=== PATIENT | male | born 1960 | race Caucasian/White ===

== ENCOUNTER → 2018-04-26 08:45 | Outpatient (CLI) | payer OTHER, MEDICAID, SELFPAY ==
[2018-04-26 09:51] LABS: Cholesterol 157 mg/dL (140-199); HDL Cholesterol 34 mg/dL (40-60); LDL Cholesterol Calculated 99 mg/dL (<100); Triglycerides 120 mg/dL (35-150)
== END ==
PROVIDERS: Family Provider Family Medicine; PCP Family Medicine; Visit Provider Family Medicine
DX: E78.00 Pure hypercholesterolemia, unspecified (principal)
CPT/HCPCS: 36415; 80061

== ENCOUNTER → 2018-07-04 13:54 | Outpatient (CLI) | payer OTHER, MEDICAID, SELFPAY ==
--- NOTE | 2018-07-04 13:56 | DI.RAD.S_ITS ---
PROCEDURE: XR WRIST LT MIN 3V INDICATIONS: PAIN IN LEFT WRIST TECHNIQUE: 4 views of the wrist were acquired. COMPARISON: None. FINDINGS: Bones: No fractures or dislocations. No suspicious bony lesions. Joint spaces are well-preserved. Scaphoid view: Scaphoid appears intact Soft tissues: No suspicious soft tissue calcifications. IMPRESSION: Unremarkable radiographic examination of left wrist. Dictated by: Alex Abebe M.D. on 07/04/2018 at 14:37 Approved by: Alex Abebe M.D. on 07/04/2018 at 14:40
== END ==
PROVIDERS: Family Provider Family Medicine; PCP Family Medicine; Visit Provider Family Medicine
DX: M25.532 Pain in left wrist (principal)
CPT/HCPCS: 73110

== ENCOUNTER → 2019-05-16 07:58 | Outpatient (CLI) | payer OTHER, MEDICAID, SELFPAY ==
[2019-05-16 09:13] LABS: Alanine Aminotransferase 52 IU/L (21-72); Albumin 4.6 g/dL (3.5-5.0); Albumin Globulin Ratio 1.5 (1.0-2.8); Alkaline Phosphatase 114 U/L (38-126); Aspartate Aminotransferase 34 IU/L (17-59); Bilirubin Total 0.7 mg/dL (0.2-1.3); Blood Urea Nitrogen 26 mg/dL (9-20); Calcium 9.3 mg/dL (8.4-10.2); Carbon Dioxide 24 mmol/L (22-32); Chloride 110 mmol/L (98-107); Cholesterol 98 mg/dL (140-199); Estimated Glomerular Filt Rate 56.7 mL/min (>60); Globulin 3.1 g/dL (1.7-4.1); Glucose 94 mg/dL (70-100); HDL Cholesterol 28 mg/dL (40-60); HEMOLYSIS < 15 (0-50); LDL Cholesterol Calculated 59 mg/dL (<100); Potassium 4.4 mmol/L (3.4-5.1); Sodium 146 mmol/L (137-145); Total Protein 7.7 g/dL (6.3-8.2); Triglycerides 55 mg/dL (35-150)
[2019-05-16 09:21] LABS: Add Manual Diff / Slide Review NO; Basophils Absolute Auto 0 /uL (0-100); Basophils Percent Auto 0.4 % (0-2); Eosinophils Absolute Auto 0 /uL (0-450); Eosinophils Percent Auto 0.2 % (2-4); Hematocrit 43.5 % (41-53); Hemoglobin 14.3 g/dL (13.5-17.5); Lymphocytes Absolute Auto 1800 /uL (1100-4500); Lymphocytes Percent Auto 15.5 % (25-40); Mean Corpuscular Hemoglobin 28.8 PG (26-34); Mean Corpuscular Volume 87.2 fL (80-100); Monocytes Absolute Auto 500 /uL (0-900); Neutrophils Absolute Auto 9500 /uL (1500-7000); Neutrophils Percent Auto 79.9 % (50-75); Platelet Count 261 X10^3/uL (150-400); Red Blood Cell Count 4.99 X10^6/uL (4.5-5.9); Red Cell Distribution Width 14.3 % (11.6-14.8); White Blood Cell Count 11.9 X10^3/uL (4.5-11.0)
== END ==
PROVIDERS: PCP Family Medicine; Visit Provider Family Medicine
DX: Z79.899 Other long term (current) drug therapy (principal); E78.00 Pure hypercholesterolemia, unspecified
CPT/HCPCS: 36415; 80053; 80061; 85025

== ENCOUNTER → 2020-07-21 08:12 | Outpatient (CLI) | payer MEDICARE, MEDICAID, SELFPAY ==
[2020-07-21 11:08] LABS: Alanine Aminotransferase 51 IU/L (<50); Albumin 4.1 g/dL (3.5-5.0); Albumin Globulin Ratio 1.4 (1.0-2.8); Alkaline Phosphatase 99 U/L (38-126); Aspartate Aminotransferase 36 IU/L (17-59); BUN Creatinine Ratio 19.9 (6-22); Bilirubin Total 0.4 mg/dL (0.2-1.3); Blood Urea Nitrogen 29 mg/dL (9-20); Calcium 9.1 mg/dL (8.4-10.2); Carbon Dioxide 24 mmol/L (22-32); Chloride 107 mmol/L (98-107); Cholesterol 82 mg/dL (140-199); Estimated Glomerular Filt Rate 49.4 mL/min (>60); Globulin 2.9 g/dL (1.7-4.1); Glucose 89 mg/dL (70-100); HDL Cholesterol 28 mg/dL (40-60); HEMOLYSIS < 15 (0-50); LDL Cholesterol Calculated 31 mg/dL (<100); Potassium 4.3 mmol/L (3.4-5.1); Sodium 140 mmol/L (137-145); Triglycerides 114 mg/dL (35-150)
== END ==
PROVIDERS: PCP Family Medicine; Referring Provider Family Medicine; Visit Provider Family Medicine
DX: Z79.899 Other long term (current) drug therapy (principal); E78.00 Pure hypercholesterolemia, unspecified
CPT/HCPCS: 36415; 80053; 80061

== ENCOUNTER → 2020-08-01 11:20 | Outpatient (CLI) | payer MEDICARE, MEDICAID, SELFPAY ==
[2020-08-02 18:11] LABS: COVID19 Sendout Not Detected (Not Detect)
== END ==
PROVIDERS: PCP Family Medicine; Visit Provider Nurse Practitioner
DX: Z11.59 Encounter for screening for other viral diseases (principal)
CPT/HCPCS: 87635

== ENCOUNTER 2020-08-04 11:56 | Day surgery (SDC) | payer MEDICARE, SELFPAY ==
[2020-08-04] MEDS: LACTATED RINGERS 1,000 ML 200 ML IV (12:24)
[2020-08-04 12:28] VITALS: BP 131/87; PULSE 88; RESP 16; TEMP 36.5; O2SAT 95; BMI 39.2
--- NOTE | 2020-08-04 12:58 | PM.HP.1 ---
History of Present Illness History of Present Illness Date Patient Seen: 08/04/20 Time Patient Seen: 12:59 Chief complaint: SDC Narrative: The patient presents for colorectal sreening. They have never had any previous examination for such. No personal or family history of colon cancer. On further history denies any recent gastrointestinal symptoms. No nausea, vomiting, abdominal pain, loss of appetite, unexplained weight loss, change in bowel habits, diarrhea, constipation, melena, hematochezia, or bright red blood per rectum. Patient History Medical History (Updated 08/04/20 @ 13:00 by Demetri Hanks MD) Anxiety (Chronic Unknown) Arthritis (Chronic Unknown) Chickenpox (Resolved Unknown) Chronic back pain (Chronic 02/2016) Chronic pain syndrome (Chronic Unknown) Class 3 obesity with serious comorbidity and body mass index (BMI) of 40.0 to 44.9 in adult (02/25/18) Depression (Chronic Unknown) GERD (gastroesophageal reflux disease) (Chronic Unknown) Gout (Chronic Unknown) Hemorrhoids (Chronic Unknown) Hyperlipemia (Chronic Unknown) Hypertension (Chronic Unknown) Insomnia (Chronic) Left wrist pain (Chronic) Measles (Resolved Unknown) Mumps (Resolved Unknown) 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) Osteoarthritis (Chronic Unknown) Pain of right hip (Chronic 01/10/18) Primary osteoarthritis of right hip (Chronic 02/25/18) Spinal stenosis (Chronic Unknown) Surgical History (Updated 08/04/20 @ 12:59 by Demetri Hanks MD) Hx of tonsillectomy (Resolved Unknown) S/P CABG x 4 (Acute) Family & Social History Family History Father Coronary artery disease of [place] artery of [place] heart with stable angina pectoris History of quadruple bypass Mother Type 2 diabetes mellitus with diabetic chronic kidney disease Sister Diabetes mellitus with multiple complications Sister Diabetes mellitus Sister Diabetes mellitus Social History: household members family lives independently Yes Tobacco & Substance use: Smoking Status Never smoker alcohol intake former Substance Use Type marijuana Meds Home Medications and Allergies Home Medications Medication Instructions Recorded Confirmed Type disabled parking permit See Rx Instructions .ROUTE 05/12/18 07/15/18 Rx .COMPLEX #1 albuterol sulfate 90 mcg/actuation 2 puff INHALATION Q4-6H PRN #8 gram 07/15/18 08/04/20 Rx aerosol inhaler gabapentin 600 mg tablet 600 mg PO TID #90 tab 08/28/18 08/04/20 Rx trazodone 100 mg tablet 100 mg PO BEDTIME #90 tab 10/31/18 08/04/20 Rx diclofenac sodium 75 mg 75 mg PO BID #180 tab 11/19/18 08/04/20 Rx tablet,delayed release omeprazole 40 mg capsule,delayed 40 mg PO Q DAY #90 cap 11/19/18 08/04/20 Rx release sertraline 100 mg tablet 100 mg PO QDAY #90 tab 11/19/18 08/04/20 Rx aspirin 81 mg PO BID 08/04/20 08/04/20 History atorvastatin 80 mg PO BEDTIME 08/04/20 08/04/20 History cyclobenzaprine 10 mg PO TID 08/04/20 08/04/20 History loratadine 10 mg PO DAILY 08/04/20 08/04/20 History losartan 12.5 mg PO DAILY 08/04/20 08/04/20 History metoprolol succinate [Toprol XL] 12.5 mg PO BID 08/04/20 08/04/20 History phentermine 37.5 mg PO DAILY 08/04/20 08/04/20 History sennosides [senna] 8.6 mg PO BEDTIME 08/04/20 08/04/20 History tamsulosin 0.8 mg PO BEDTIME 08/04/20 08/04/20 History topiramate 50 mg PO DAILY 08/04/20 08/04/20 History Allergies Allergy/AdvReac Type Severity Reaction Status Date / Time lisinopril AdvReac Cough Verified 08/04/20 12:41 Review of Systems Review of Systems Narrative: A 10 point review of systems is negative except as noted in the HPI Exam Vital Signs (past 8 hours): - 08/04/20 12:28 Temperature 97.7 F Pulse Rate 88 Respiratory Rate 16 Blood Pressure 131/87 Pulse Oximetry 95 Oxygen Delivery Method Room Air Narrative Exam Narrative: General-no acute distress, obese male HEENT-moist mucous membranes, no scleral icterus Neck-supple, no lymphadenopathy Chest- non labored respirations, clear to auscultation bilaterally Cardiac-regular rate no peripheral edema Abdomen-soft, nontender, non distended Extremities-warm, well perfused Neurological-alert and oriented, no focal deficits Assessment & Plan Assessment and plan (1) Screening for colon cancer: Status: Acute Assessment & Plan narrative: The patient requires colorectal screening and colonoscopy is recommended. Technical details were discussed. Risks, benefits, alternatives explained. Risks including but not limited to myocardial infarction, aspiration, bleeding, pain, missed lesion, incomplete examination, need for further radiographic studies, colonic perforation, and need for major abdominal surgery were discussed. All questions were answered to their satisfaction, and they are in agreement with this plan. COVID-19 COVID-19 status: Negative
[2020-08-04] MEDS: fentaNYL 250 MCG/5 ML INJ IV (13:03)
[2020-08-04] MEDS: MIDAZOLAM 5 MG/5 ML VIAL IV (13:03)
--- NOTE | 2020-08-04 13:21 | PM.OP.ENDO ---
Operative Date/Time/Diagnoses Date of procedure: 08/04/20 Time of procedure: 13:22 Pre-op diagnosis: Screening colonoscopy Post-op diagnosis: same Procedure & Clinicians Study performed: Colonoscopy Same procedure as scheduled: Yes Indications: 59-year-old male here for initial routine screening colonoscopy Surgeon: Demetri Hanks Procedure Notes SCOAP/Timeout: Performed Procedure in detail: Patient placed in left lateral recumbent position. Time out was performed. Procedural sedation was administered with Versed and Fentanyl. Examination began with a thorough inspection of the perianal area there was no evidence of fissures, fistulae, external hemorrhoids or cutaneous malignancy. The colonoscopy scope was then placed into the rectum the the lumen was insufflated with air. The scope was carefully advanced forward. Ultimately the cecum was intubated and confirmed by identification of the ileocecal valve and the confluence of the taenia. The scope was then slowly withdrawn examining colon thoroughly in all directions. In the rectum the rectal columns were identified and retroflexion of the scope was performed for inspection of the distal rectum and anal canal. The colonoscopy was notable for the followin. Quality of the preparation-good 2. No masses polyps Scope withdrawal time: 6 Sedation minutes: 17 Specimen(s): none sent Complications: none Impression: Normal colonoscopy Post-procedure Recommendations: Colonscopy in 10 years Disposition: same day surgery
[2020-08-04 13:26] VITALS: BP 127/85; PULSE 92; RESP 12; TEMP 36.2; O2SAT 96
[2020-08-04 13:31] VITALS: BP 122/72; PULSE 77; RESP 17; O2SAT 96
[2020-08-04 13:36] VITALS: BP 123/79; PULSE 84; RESP 18; TEMP 36.4; O2SAT 94
== END 2020-08-04 13:50 | disposition home or self-care (01) ==
PROVIDERS: PCP Family Medicine; Referring Provider Surgery; Visit Provider Surgery
PROC: 0DJD8ZZ Inspection of Lower Intestinal Tract, Via Natural or Artificial Opening Endoscopic (ICD-10-PCS; CPT 45378; principal; 2020-08-04 13:00)
DX: Z12.11 Encounter for screening for malignant neoplasm of colon (principal); I10 Essential (primary) hypertension; E78.5 Hyperlipidemia, unspecified; E66.9 Obesity, unspecified; Z68.41 Body mass index [BMI] 40.0-44.9, adult; Z95.1 Presence of aortocoronary bypass graft
CPT/HCPCS: G0121; 99152; J2250; J3010

== ENCOUNTER → 2021-10-14 08:01 | Outpatient (CLI) | payer MEDICARE, SELFPAY ==
[2021-10-14 09:48] LABS: Add Manual Diff / Slide Review NO; Basophils Absolute Auto 100 /uL (0-100); Basophils Percent Auto 0.9 % (0-2); Eosinophils Absolute Auto 100 /uL (0-450); Eosinophils Percent Auto 0.7 % (2-4); Hematocrit 36.8 % (41-53); Hemoglobin 12.1 g/dL (13.5-17.5); Lymphocytes Absolute Auto 1700 /uL (1100-4500); Lymphocytes Percent Auto 20.1 % (25-40); Mean Corpuscular HGB Conc 32.9 % (30-36); Mean Corpuscular Hemoglobin 28.7 PG (26-34); Mean Corpuscular Volume 87.2 fL (80-100); Monocytes Absolute Auto 600 /uL (0-900); Monocytes Percent Auto 6.6 % (3-14); Neutrophils Absolute Auto 6200 /uL (1500-7000); Neutrophils Percent Auto 71.7 % (50-75); Platelet Count 273 X10^3/uL (150-400); Red Blood Cell Count 4.22 X10^6/uL (4.5-5.9); Red Cell Distribution Width 15.3 % (11.6-14.8); White Blood Cell Count 8.7 X10^3/uL (4.5-11.0)
[2021-10-14 10:47] LABS: Alanine Aminotransferase 38 IU/L (<50); Albumin Globulin Ratio 1.5 (1.0-2.8); Alkaline Phosphatase 78 U/L (38-126); Aspartate Aminotransferase 37 IU/L (17-59); BUN Creatinine Ratio 24.8 (6-22); Bilirubin Total 0.6 mg/dL (0.2-1.3); Blood Urea Nitrogen 28 mg/dL (9-20); Calcium 9.1 mg/dL (8.4-10.2); Carbon Dioxide 27 mmol/L (22-32); Chloride 106 mmol/L (98-107); Cholesterol 104 mg/dL (140-199); Estimated Glomerular Filt Rate > 60.0 mL/min (>60); Globulin 2.7 g/dL (1.7-4.1); Glucose 92 mg/dL (80-110); HDL Cholesterol 29 mg/dL (40-60); HEMOLYSIS 24 (0-50); LDL Cholesterol Calculated 60 mg/dL (<100); Potassium 4.5 mmol/L (3.4-5.1); Sodium 141 mmol/L (137-145); Total Protein 6.7 g/dL (6.3-8.2); Triglycerides 77 mg/dL (35-150)
== END ==
PROVIDERS: PCP Family Medicine; Referring Provider Family Medicine; Visit Provider Family Medicine
DX: I10 Essential (primary) hypertension (principal); E78.00 Pure hypercholesterolemia, unspecified
CPT/HCPCS: 36415; 80053; 80061; 85025